=== PATIENT | female | born 1980 | race Two or more races ===

== ENCOUNTER 2021-02-27 21:03 | Inpatient (IN) | payer SELFPAY ==
[~2021-02-27] VITALS: Ht 167.6 cm; Wt 60.9 kg
[2021-02-27] MEDS ORDERED: MORPHINE SULFATE 4 MG/ML INJ. IVP ONE (23:45)
[2021-02-27] MEDS ORDERED: IV NORMAL SALINE 1000ML BAG 1,000 ML IV ONE (23:45)
[2021-02-27] MEDS ORDERED: ONDANSETRON PF 4 MG/2 ML VIAL. IVP ONE (23:45)
--- NOTE | 2021-02-27 23:53 | PHYS DOC ---
General Adult EDM: Chief Complaint: ABDOMINAL PAIN HPI: HPI: Patient is a 40 year old female who presents with lower abdominal pain. Patient states that on Saturday she started having pain which progressed to diarrhea on Saturday along with vomiting. Patient reports that she vomited once yesterday and once today. Patient describes pain as a cramping, intermittent pain. Denies other health history. Denies daily meds. Patient is fully vaccinated for COVID-19. Review of Systems: Review of Systems: Constitutional: Denies fever or chills. [] Eyes: Denies change in visual acuity. [] HENT: Denies nasal congestion or sore throat. [] Respiratory: Denies cough or shortness of breath. [] Cardiovascular: Denies chest pain or edema. [] GI: Denies abdominal pain, nausea, vomiting, bloody stools or diarrhea. [] : Denies dysuria. [] Musculoskeletal: Denies back pain or joint pain. [] Integument: Denies rash. [] Neurologic: Denies headache, focal weakness or sensory changes. [] Endocrine: Denies polyuria or polydipsia. [] Lymphatic: Denies swollen glands. [] Psychiatric: Denies depression or anxiety. [] Heart Score: C/O Chest Pain: No Risk Factors: Risk Factors: DM, Current or recent (<one month) smoker, HTN, HLP, family history of CAD, obesity. Risk Scores: Score 0 - 3: 2.5% MACE over next 6 weeks - Discharge Home Score 4 - 6: 20.3% MACE over next 6 weeks - Admit for Clinical Observation Score 7 - 10: 72.7% MACE over next 6 weeks - Early Invasive Strategies Allergies: Allergies: Allergies Coded Allergies Type Severity Reaction Last Updated Verified No Known Drug Allergies 04/27/13 No Physical Exam: PE: Constitutional: Well developed, well nourished, no acute distress, non-toxic appearance. [] HENT: Normocephalic, atraumatic, bilateral external ears normal, oropharynx moist, no oral exudates, nose normal. [] Eyes: PERRLA, EOMI, conjunctiva normal, no discharge. [] Neck: Normal range of motion, no tenderness, supple, no stridor. [] Cardiovascular:Heart rate regular rhythm, no murmur [] Lungs & Thorax: Bilateral breath sounds clear to auscultation [] Abdomen: Bowel sounds normal, soft, lower abdominal tenderness, no masses Skin: Warm, dry, no erythema, no rash. [] Back: No tenderness, no CVA tenderness. [] Extremities: No tenderness, no cyanosis, no clubbing, ROM intact, no edema. [] Neurologic: Alert and oriented X 3, normal motor function, normal sensory function, no focal deficits noted. [] Psychologic: Affect normal, judgement normal, mood normal. [] EKG: EKG: [] Radiology/Procedures: Radiology/Procedures: [] Course & Med Decision Making: Course & Med Decision Making Pertinent Labs and Imaging studies reviewed. (See chart for details) [] 40-year-old female presents with lower abdominal cramping since Saturday. Patient's also been having diarrhea and vomiting. ER work-up consisted of urinalysis, CT abdomen pelvis, labs. Patient's pain was treated in the ER. Patient care transferred to Dr. Liu at 0058 [facility] Disclaimer: Cammy Disclaimer: This electronic medical record was generated, in whole or in part, using a voice recognition dictation system. Departure Departure Referrals: NO PCP (PCP) HEATHER LYNN APRN Feb 27, 2021 23:52
[2021-02-28 00:16] LABS: BASO % 0 % (0-3); EOS % 0 % (0-3); HEMATOCRIT 33.4 % (36.0-47.0); LYMPH # 0.9 x10^3/uL (1.0-4.8); LYMPH % 6 % (24-48); MEAN CORPUSCULAR HEMOGLOBIN 27 pg (25-35); MEAN CORPUSCULAR HGB CONC 33 g/dL (31-37); MEAN CORPUSCULAR VOLUME 81 fL (79-100); MONO # 0.5 x10^3/uL (0.0-1.1); MONO % 3 % (0-9); NEUT # 14.7 x10^3/uL (1.8-7.7); NEUT % 91 % (31-73); PLATELET COUNT 385 x10^3/uL (140-400); RED BLOOD COUNT 4.12 x10^6/uL (3.50-5.40); RED CELL DISTRIBUTION WIDTH 15.5 % (11.5-14.5); WHITE BLOOD COUNT 16.1 x10^3/uL (4.0-11.0)
[2021-02-28 00:23] LABS: CALCIUM 8.1 mg/dL (8.5-10.1); CREATININE 0.7 mg/dL (0.6-1.0); GFR 93.6; POTASSIUM 3.7 mmol/L (3.5-5.1)
[2021-02-28 00:29] LABS: ALBUMIN 2.3 g/dL (3.4-5.0); ALBUMIN/GLOBULIN RATIO 0.4 (1.0-1.7); MAGNESIUM 2.2 mg/dL (1.8-2.4); TOTAL BILIRUBIN 0.3 mg/dL (0.2-1.0); TOTAL PROTEIN 7.5 g/dL (6.4-8.2)
[2021-02-28 00:42] LABS: PREG TEST PT QUAL NEGATIVE (NEG)
--- NOTE | 2021-02-28 01:24 | RAD ---
Abdominal and Pelvis CT, Without Contrast: History: Reason: LOWER ABDOMINAL PAIN / Spl. Instructions: / History: Comparison: None. Procedure: Axial images are obtained of the abdomen and pelvis, without IV or oral contrast. Oral Contrast: No Findings: Evaluation of solid organs is limited without contrast. This patchy opacities in the lung bases. There is moderate wall thickening of the colon which is collapsed and not well evaluated. There is mu ltiple dilated loops of small bowel seen which have mild to moderate wall thickening. There is a mass in the pelvis which measures 14.3 x 9.0 x 12.6 cm and directly involves the uterus and likely involv es the ovaries. There is loss of the fat plane between this mass and There is a trace of fluid around the liver. Liver: Normal. Spleen: Normal. Pancreas: Normal. Adrenal Glands: Normal. Kidneys: Normal. There is no free air. There is no lymphadenopathy. The urinary bladder appears normal. There is no pericolonic inflammation identified. Impression: 1. Basilar pulmonary infiltrates could be discoid atelectasis or atypical pneumonia. 2. Large mass in the pelvis which appears to directly involve the uterus and ovaries. This could be o varian cancer or a leiomyosarcoma or endometrial carcinoma. must be excluded. 3. High-grade small bowel obstruction. Exact transition zone is not seen. 4. Moderate wall thickening of the colon could be colitis however carcinomatosis is possible. End impression PQRS Compliance Statement: One or more of the following individualized dose reduction techniques were utilized for this examinat ion: 1. Automated exposure control 2. Adjustment of the mA and/or kV according to patient size 3. Use of iterative reconstruction technique Electronically signed by: Jesus Merritt III, MD (02/28/2021 1:22 AM) [facility]
--- NOTE | 2021-02-28 01:31 | RAD ---
XR CHEST 1V Clinical History: Reason: ABDOMINAL PAIN / Spl. Instructions: / History: Technique: AP view of the chest was obtained at 02/27/2021 12:48 AM. Comparison: None. Findings: The cardiomediastinal silhouette is normal. The pulmonary vasculature is normal. There is linear opac ities in the lower lungs. Impression: Basal infiltrates could be discoid atelectasis or pneumonia. Electronically signed by: Jesus Merritt III, MD (02/28/2021 1:29 AM) [facility]
[2021-02-28] MEDS ORDERED: BENZOCAINE ONE 20% MUCOSAL SPRAY. (02:19)
[2021-02-28] MEDS ORDERED: BENZOCAINE ONE 20% MUCOSAL SPRAY. MM ×2 (02:30→02:45)
--- NOTE | 2021-02-28 03:12 | RAD ---
One view abdomen HISTORY: NG tube placement Supine AP view abdomen 2:45 PM There is an enteric tube with its tip in the distal stomach. There is patchy and linear opacities mary g bases which are likely discoid atelectasis. There is no obvious free air. There is air within a few mildly distended loops of small bowel. IMPRESSION: 1. Enteric tube well-positioned. 2. Abnormal bowel gas pattern consistent with small bowel obstruction. Electronically signed by: Jesus Merritt III, MD (02/28/2021 3:10 AM) [facility]
[2021-02-28] MEDS ORDERED: ONDANSETRON PF 4 MG/2 ML VIAL. IVP PRN ×2 (03:30→09:30)
[2021-02-28] MEDS ORDERED: fentaNYL PF VIAL 100 MCG/2 ML VIAL IVP PRN (03:30)
[2021-02-28 04:15] VITALS: BP 123/75
[2021-02-28] MEDS: IV NORMAL SALINE 1000ML BAG 1,000 ML IV SCH ×2 (04:42→16:53)
[2021-02-28] MEDS ORDERED: ACET325T9 PO (05:41)
[2021-02-28 07:00] VITALS: BP 123/70
--- NOTE | 2021-02-28 09:27 | PDOC1 ---
History and Physical Date of Service: DOS: DATE: 02/28/21 TIME: 09:27 Chief Complaint: Problems: (1) SBO (small bowel obstruction) (2) Pelvic mass History of Present Illness: HPI: Patient is a 40 year old female who presents with lower abdominal pain. Patient states that on Saturday she started having pain which progressed to diarrhea on Saturday along with vomiting. Patient reports that she vomited once yesterday and once today. Of note patient received her Covid shot on Saturday and initially thought symptoms were related to that. patient describes pain as a cramping, intermittent pain. Denies other health history. Denies daily meds. Patient is fully vaccinated for COVID-19. Past Medical/Surgical History: PMH/PSH: Denies any past medical history Allergies: Allergies: Coded Allergies: No Known Drug Allergies (Unverified , 04/27/13) Family History: Family History: Reviewed with patient no known Social History: Social History: Denies alcohol tobacco drug use Current Medications: Current Medications Current Medications Sodium Chloride 1,000 ml @ 30 mls/hr 1X ONCE IV Last administered on 02/28/21at 00:05; Start 02/27/21 at 23:45; Stop 03/01/21 at 09:04 Morphine Sulfate (Morphine Sulfate) 4 mg 1X ONCE IVP Last administered on 02/28/21at 00:05; Start 02/27/21 at 23:45; Stop 02/27/21 at 23:50; Status DC Ondansetron HCl (Zofran) 4 mg 1X ONCE IVP Last administered on 02/28/21at 00:05; Start 02/27/21 at 23:45; Stop 02/27/21 at 23:50; Status DC Benzocaine (Hurricaine One) 1 spray STK-MED ONCE .ROUTE ; Start 02/28/21 at 02:19; Stop 02/28/21 at 02:20; Status DC Benzocaine (Hurricaine One) 1 spray 1X ONCE MM Last administered on 02/28/21at 02:30; Start 02/28/21 at 02:30; Stop 02/28/21 at 02:31; Status DC Benzocaine (Hurricaine One) 1 spray 1X ONCE MM ; Start 02/28/21 at 02:45; Stop 02/28/21 at 02:46; Status DC Ondansetron HCl (Zofran) 4 mg PRN Q8HRS PRN IVP NAUSEA/VOMITING; Start 02/28/21 at 03:30; Stop 03/01/21 at 03:29 Fentanyl Citrate (Fentanyl 2ml Vial) 50 mcg PRN Q1HR PRN IVP PAIN Last administered on 02/28/21at 04:42; Start 02/28/21 at 03:30; Stop 03/01/21 at 03:29 Sodium Chloride 1,000 ml @ 75 mls/hr [id number] IV Last administered on 02/28/21at 04:42; Start 02/28/21 at 03:30; Stop 03/01/21 at 03:29 Active Scripts Active Reported Tylenol (Acetaminophen) 325 Mg Tablet 650 Mg PO PRN Q4HRS PRN ROS: Review of Systems Review of System Unless noted in HPI 14 point review systems was negative Physical Exam: Vital Signs: Vital Signs Date Time Temp Pulse Resp B/P (MAP) Pulse Ox O2 Delivery O2 Flow Rate FiO2 02/28/21 07:00 98.5 75 19 123/70 (87) 94 Room Air 98.5 Physcial Exam: GEN: Patient in mild distress HEENT: Normal cephalic, atraumatic, external auditory canals are patent EYES: Extraocular muscles are intact, pupil are equally round and reactive to light and accommodation MUSCULOSKELETAL: Well developed , well nourished, good range of motion ENDOCRINE: No thyromegaly was palpated LYMPHATICS: No cervical chain or axillary nodes were noted HEMATOPOIETIC: No bruising NECK: Supple, no JVD, no thyromegaly was noted LUNGS: Clear to auscultation in all lung riley without rhonchi or wheezing HEART: RRR, S1, S2 present. Peripheral pulses intact, no obvious murmurs noted ABDOMEN: Diffusely tender. Soft. No apparent hepatosplenomegaly EXTREMITIES: Without clubbing, cyanosis, or edema. Pedal pulses intact. Negative Homans sign NEUROLOGIC: Normal speech and tone. A&O x 3, moves all extremities, no obvious focal deficits PSYCHIATRIC: Normal affect, normal mood. Stable SKIN: No ulcerations or rashes, good skin turgor, no jaundice VASCULAR: Good capillary refill, neurovascular bundle appears to be intact Labs: Labs: Laboratory Tests Test 02/28/21 00:01 02/28/21 00:10 02/28/21 03:46 Serum Test, Qualitative Negative (NEG) White Blood Count 16.1 x10^3/uL (4.0-11.0) Red Blood Count 4.12 x10^6/uL (3.50-5.40) Hemoglobin 11.0 g/dL (12.0-15.5) Hematocrit 33.4 % (36.0-47.0) Mean Corpuscular Volume 81 fL (79-100) Mean Corpuscular Hemoglobin 27 pg (25-35) Mean Corpuscular Hemoglobin Concent 33 g/dL (31-37) Red Cell Distribution Width 15.5 % (11.5-14.5) Platelet Count 385 x10^3/uL (140-400) Neutrophils (%) (Auto) 91 % (31-73) Lymphocytes (%) (Auto) 6 % (24-48) Monocytes (%) (Auto) 3 % (0-9) Eosinophils (%) (Auto) 0 % (0-3) Basophils (%) (Auto) 0 % (0-3) Neutrophils # (Auto) 14.7 x10^3/uL (1.8-7.7) Lymphocytes # (Auto) 0.9 x10^3/uL (1.0-4.8) Monocytes # (Auto) 0.5 x10^3/uL (0.0-1.1) Eosinophils # (Auto) 0.0 x10^3/uL (0.0-0.7) Basophils # (Auto) 0.0 x10^3/uL (0.0-0.2) Sodium Level 137 mmol/L (136-145) Potassium Level 3.7 mmol/L (3.5-5.1) Chloride Level 100 mmol/L (98-107) Carbon Dioxide Level 28 mmol/L (21-32) Anion Gap 9 (6-14) Blood Urea Nitrogen 9 mg/dL (7-20) Creatinine 0.7 mg/dL (0.6-1.0) Estimated GFR (Cockcroft-Gault) 93.6 BUN/Creatinine Ratio 13 (6-20) Glucose Level 118 mg/dL (70-99) Calcium Level 8.1 mg/dL (8.5-10.1) Magnesium Level 2.2 mg/dL (1.8-2.4) Total Bilirubin 0.3 mg/dL (0.2-1.0) Aspartate Amino Transf (AST/SGOT) 15 U/L (15-37) Alanine Aminotransferase (ALT/SGPT) 22 U/L (14-59) Alkaline Phosphatase 134 U/L (46-116) Total Protein 7.5 g/dL (6.4-8.2) Albumin 2.3 g/dL (3.4-5.0) Albumin/Globulin Ratio 0.4 (1.0-1.7) Lipase 50 U/L (73-393) SARS-CoV-2 Antigen (Rapid) Negative (NEGATIVE) Laboratory Tests Test 02/28/21 00:01 02/28/21 00:10 02/28/21 03:46 Serum Test, Qualitative Negative (NEG) White Blood Count 16.1 x10^3/uL (4.0-11.0) Red Blood Count 4.12 x10^6/uL (3.50-5.40) Hemoglobin 11.0 g/dL (12.0-15.5) Hematocrit 33.4 % (36.0-47.0) Mean Corpuscular Volume 81 fL (79-100) Mean Corpuscular Hemoglobin 27 pg (25-35) Mean Corpuscular Hemoglobin Concent 33 g/dL (31-37) Red Cell Distribution Width 15.5 % (11.5-14.5) Platelet Count 385 x10^3/uL (140-400) Neutrophils (%) (Auto) 91 % (31-73) Lymphocytes (%) (Auto) 6 % (24-48) Monocytes (%) (Auto) 3 % (0-9) Eosinophils (%) (Auto) 0 % (0-3) Basophils (%) (Auto) 0 % (0-3) Neutrophils # (Auto) 14.7 x10^3/uL (1.8-7.7) Lymphocytes # (Auto) 0.9 x10^3/uL (1.0-4.8) Monocytes # (Auto) 0.5 x10^3/uL (0.0-1.1) Eosinophils # (Auto) 0.0 x10^3/uL (0.0-0.7) Basophils # (Auto) 0.0 x10^3/uL (0.0-0.2) Sodium Level 137 mmol/L (136-145) Potassium Level 3.7 mmol/L (3.5-5.1) Chloride Level 100 mmol/L (98-107) Carbon Dioxide Level 28 mmol/L (21-32) Anion Gap 9 (6-14) Blood Urea Nitrogen 9 mg/dL (7-20) Creatinine 0.7 mg/dL (0.6-1.0) Estimated GFR (Cockcroft-Gault) 93.6 BUN/Creatinine Ratio 13 (6-20) Glucose Level 118 mg/dL (70-99) Calcium Level 8.1 mg/dL (8.5-10.1) Magnesium Level 2.2 mg/dL (1.8-2.4) Total Bilirubin 0.3 mg/dL (0.2-1.0) Aspartate Amino Transf (AST/SGOT) 15 U/L (15-37) Alanine Aminotransferase (ALT/SGPT) 22 U/L (14-59) Alkaline Phosphatase 134 U/L (46-116) Total Protein 7.5 g/dL (6.4-8.2) Albumin 2.3 g/dL (3.4-5.0) Albumin/Globulin Ratio 0.4 (1.0-1.7) Lipase 50 U/L (73-393) SARS-CoV-2 Antigen (Rapid) Negative (NEGATIVE) Assessment/Plan Assessment/Plan Nausea vomiting diarrhea secondary to pelvic mass also causing small bowel obstruction -3-day history worsening abdominal pain. Initially thought of secondary to Covid booster shot -Came to emergency room yesterday today found to have a large mass in her pelvis on CT scan -Gynecology and surgery consulted -Gynecology recommending pelvic ultrasound along with further lab work-up. If remains consistent with malignancy recommending transfer to another facility with [employer] [facility]/Onc coverage. Surgical team agrees. -Likely will be difficult to transfer as patient does not have insurance -N.p.o. for now -DVT prophylaxis -After labs and pelvic ultrasound completed will start working on transfer. Justifications for Admission Other Justification LYNDA DÍAZ MD Feb 28, 2021 09:27
[2021-02-28] MEDS ORDERED: ACETAMINOPHEN 325 MG TABLET. PO PRN (09:30)
[2021-02-28] MEDS ORDERED: MORPHINE SULFATE 2 MG/ML INJ. IV PRN ×2 (09:30)
[2021-02-28] MEDS ORDERED: ZOLPIDEM 5 MG TABLET. PO PRN (09:30)
[2021-02-28] MEDS ORDERED: CALCIUM CARBONATE 500 MG TAB.CHEW PO PRN (09:30)
[2021-02-28] MEDS ORDERED: ELECTROLYTE (NON-ICU) PROTOCOL. MC PRN (09:30)
[2021-02-28] MEDS ORDERED: oxyCODONE IR 5 MG TABLET PO PRN (09:30)
[2021-02-28] MEDS ORDERED: PROCHLORPERAZINE 10 MG/2 ML VIAL. IVP PRN (09:30)
--- NOTE | 2021-02-28 10:23 | PDOC2 ---
CONSULT Date of Consult Date of Consult DATE: 02/28/21 TIME: 10:22 Reason for Consult Reason for Consult: Pelvic mass, abd pain 40y who presented to the ER with abd pain. The pt states that she received her covid vaccine shot this Saturday. At first she thought her symptoms may have been related to that. On Sat (02/25) she began to have abd pain, bloating and diarrhea. The following day she began to have vomiting. She has never felt like this before. When she presented to the ER she underwent imaging. A CT revealed the followin. Basilar pulmonary infiltrates could be discoid atelectasis or atypical pneumonia. 2. Large mass in the pelvis which appears to directly involve the uterus and ovaries. This could be ovarian cancer or a leiomyosarcoma or endometrial carcinoma. must be excluded. 3. High-grade small bowel obstruction. Exact transition zone is not seen. 4. Moderate wall thickening of the colon could be colitis however carcinomatosis is possible. 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 Menarche at 14yo, regular cycles Not currently on contracpetion SH: no tob, no EtOH FH: noncontributory Current Medications Current Medications Current Medications Sodium Chloride 1,000 ml @ 30 mls/hr 1X ONCE IV Last administered on 02/28/21at 00:05; Start 02/27/21 at 23:45; Stop 03/01/21 at 09:04 Morphine Sulfate (Morphine Sulfate) 4 mg 1X ONCE IVP Last administered on 02/28/21at 00:05; Start 02/27/21 at 23:45; Stop 02/27/21 at 23:50; Status DC Ondansetron HCl (Zofran) 4 mg 1X ONCE IVP Last administered on 02/28/21at 00:05; Start 02/27/21 at 23:45; Stop 02/27/21 at 23:50; Status DC Benzocaine (Hurricaine One) 1 spray STK-MED ONCE .ROUTE ; Start 02/28/21 at 02:19; Stop 02/28/21 at 02:20; Status DC Benzocaine (Hurricaine One) 1 spray 1X ONCE MM Last administered on 02/28/21at 02:30; Start 02/28/21 at 02:30; Stop 02/28/21 at 02:31; Status DC Benzocaine (Hurricaine One) 1 spray 1X ONCE MM ; Start 02/28/21 at 02:45; Stop 02/28/21 at 02:46; Status DC Ondansetron HCl (Zofran) 4 mg PRN Q8HRS PRN IVP NAUSEA/VOMITING; Start 02/28/21 at 03:30; Stop 03/01/21 at 03:29 Fentanyl Citrate (Fentanyl 2ml Vial) 50 mcg PRN Q1HR PRN IVP PAIN Last administered on 02/28/21at 04:42; Start 02/28/21 at 03:30; Stop 03/01/21 at 03:29 Sodium Chloride 1,000 ml @ 75 mls/hr [id number] IV Last administered on 02/28at 04:42; Start 02/28/21 at 03:30; Stop 03/01/21 at 03:29 Ondansetron HCl (Zofran) 4 mg PRN Q6HRS PRN IVP NAUSEA/VOMITING; Start 02/28/21 at 09:30 Prochlorperazine Edisylate (Compazine) 10 mg PRN Q6HRS PRN IVP NAUSEA/VOMITING- 2ND CHOICE; Start 02/28/21 at 09:30 Calcium Carbonate/ Glycine (Tums) 500 mg PRN Q3HRS PRN PO UPSET STOMACH; Start 02/28/21 at 09:30 Zolpidem Tartrate (Ambien) 5 mg PRN QHS PRN PO INSOMNIA, MAY REPEAT IN 1HR; Start 02/28/21 at 09:30 Info (Non-Icu Electrolyte Protocol) 1 ea PRN DAILY PRN MC SEE COMMENTS; Start 02/28/21 at 09:30 Oxycodone HCl (Roxicodone) 5 mg PRN Q3HRS PRN PO BREAKTHROUGH PAIN; Start 02/28/21 at 09:30 Morphine Sulfate (Morphine Sulfate) 1 mg PRN Q1HR PRN IV MODERATE PAIN; Start 02/28/21 at 09:30 Morphine Sulfate (Morphine Sulfate) 2 mg PRN Q1HR PRN IV SEVERE PAIN; Start 02/28/21 at 09:30 Acetaminophen (Tylenol) 650 mg PRN Q6HRS PRN PO Headaches, Temp > 101.5F; Start 02/28/21 at 09:30 Senna/Docusate Sodium (Senna Plus) 1 tab BID PO ; Start 02/28/21 at 21:00 Heparin Sodium (Porcine) (Heparin Sodium) 5,000 unit Q8HRS SQ ; Start 02/28/21 at 14:00 Active Scripts Active Reported Tylenol (Acetaminophen) 325 Mg Tablet 650 Mg PO PRN Q4HRS PRN Allergies Allergies: Coded Allergies: No Known Drug Allergies (Unverified , 04/27/13) Physical Exam General: Alert, Oriented X3, Cooperative, No acute distress HEENT: PERRLA, Mucous membr. moist/pink Lungs: Clear to auscultation, Normal air movement Heart: Regular rate, Normal S1, Normal S2, No murmurs Abdomen: Normal bowel sounds, Soft, No hepatosplenomegaly Extremities: No clubbing, No cyanosis, No edema, Normal pulses, No tenderness/swelling Skin: No rashes, No breakdown Neuro: Normal gait, Normal speech, Normal tone, Sensation intact, Reflexes 2+ Psych/Mental Status: Mental status NL, Mood NL Vitals VITALS Vital Signs Date Time Temp Pulse Resp B/P (MAP) Pulse Ox O2 Delivery O2 Flow Rate FiO2 02/28/21 07:00 98.5 75 19 123/70 (87) 94 Room Air 98.5 Labs Labs Laboratory Tests Test 02/28/21 00:01 02/28/21 00:10 02/28/21 03:46 Serum Test, Qualitative Negative (NEG) White Blood Count 16.1 x10^3/uL (4.0-11.0) Red Blood Count 4.12 x10^6/uL (3.50-5.40) Hemoglobin 11.0 g/dL (12.0-15.5) Hematocrit 33.4 % (36.0-47.0) Mean Corpuscular Volume 81 fL (79-100) Mean Corpuscular Hemoglobin 27 pg (25-35) Mean Corpuscular Hemoglobin Concent 33 g/dL (31-37) Red Cell Distribution Width 15.5 % (11.5-14.5) Platelet Count 385 x10^3/uL (140-400) Neutrophils (%) (Auto) 91 % (31-73) Lymphocytes (%) (Auto) 6 % (24-48) Monocytes (%) (Auto) 3 % (0-9) Eosinophils (%) (Auto) 0 % (0-3) Basophils (%) (Auto) 0 % (0-3) Neutrophils # (Auto) 14.7 x10^3/uL (1.8-7.7) Lymphocytes # (Auto) 0.9 x10^3/uL (1.0-4.8) Monocytes # (Auto) 0.5 x10^3/uL (0.0-1.1) Eosinophils # (Auto) 0.0 x10^3/uL (0.0-0.7) Basophils # (Auto) 0.0 x10^3/uL (0.0-0.2) Sodium Level 137 mmol/L (136-145) Potassium Level 3.7 mmol/L (3.5-5.1) Chloride Level 100 mmol/L (98-107) Carbon Dioxide Level 28 mmol/L (21-32) Anion Gap 9 (6-14) Blood Urea Nitrogen 9 mg/dL (7-20) Creatinine 0.7 mg/dL (0.6-1.0) Estimated GFR (Cockcroft-Gault) 93.6 BUN/Creatinine Ratio 13 (6-20) Glucose Level 118 mg/dL (70-99) Calcium Level 8.1 mg/dL (8.5-10.1) Magnesium Level 2.2 mg/dL (1.8-2.4) Total Bilirubin 0.3 mg/dL (0.2-1.0) Aspartate Amino Transf (AST/SGOT) 15 U/L (15-37) Alanine Aminotransferase (ALT/SGPT) 22 U/L (14-59) Alkaline Phosphatase 134 U/L (46-116) Total Protein 7.5 g/dL (6.4-8.2) Albumin 2.3 g/dL (3.4-5.0) Albumin/Globulin Ratio 0.4 (1.0-1.7) Lipase 50 U/L (73-393) SARS-CoV-2 Antigen (Rapid) Negative (NEGATIVE) Laboratory Tests Test 02/28/21 00:01 02/28/21 00:10 02/28/21 03:46 Serum Test, Qualitative Negative (NEG) White Blood Count 16.1 x10^3/uL (4.0-11.0) Red Blood Count 4.12 x10^6/uL (3.50-5.40) Hemoglobin 11.0 g/dL (12.0-15.5) Hematocrit 33.4 % (36.0-47.0) Mean Corpuscular Volume 81 fL (79-100) Mean Corpuscular Hemoglobin 27 pg (25-35) Mean Corpuscular Hemoglobin Concent 33 g/dL (31-37) Red Cell Distribution Width 15.5 % (11.5-14.5) Platelet Count 385 x10^3/uL (140-400) Neutrophils (%) (Auto) 91 % (31-73) Lymphocytes (%) (Auto) 6 % (24-48) Monocytes (%) (Auto) 3 % (0-9) Eosinophils (%) (Auto) 0 % (0-3) Basophils (%) (Auto) 0 % (0-3) Neutrophils # (Auto) 14.7 x10^3/uL (1.8-7.7) Lymphocytes # (Auto) 0.9 x10^3/uL (1.0-4.8) Monocytes # (Auto) 0.5 x10^3/uL (0.0-1.1) Eosinophils # (Auto) 0.0 x10^3/uL (0.0-0.7) Basophils # (Auto) 0.0 x10^3/uL (0.0-0.2) Sodium Level 137 mmol/L (136-145) Potassium Level 3.7 mmol/L (3.5-5.1) Chloride Level 100 mmol/L (98-107) Carbon Dioxide Level 28 mmol/L (21-32) Anion Gap 9 (6-14) Blood Urea Nitrogen 9 mg/dL (7-20) Creatinine 0.7 mg/dL (0.6-1.0) Estimated GFR (Cockcroft-Gault) 93.6 BUN/Creatinine Ratio 13 (6-20) Glucose Level 118 mg/dL (70-99) Calcium Level 8.1 mg/dL (8.5-10.1) Magnesium Level 2.2 mg/dL (1.8-2.4) Total Bilirubin 0.3 mg/dL (0.2-1.0) Aspartate Amino Transf (AST/SGOT) 15 U/L (15-37) Alanine Aminotransferase (ALT/SGPT) 22 U/L (14-59) Alkaline Phosphatase 134 U/L (46-116) Total Protein 7.5 g/dL (6.4-8.2) Albumin 2.3 g/dL (3.4-5.0) Albumin/Globulin Ratio 0.4 (1.0-1.7) Lipase 50 U/L (73-393) SARS-CoV-2 Antigen (Rapid) Negative (NEGATIVE) Assessment/Plan Assessment/Plan Assessment: 40y who with pelvic mass and SBO Recommendation: 1.) Pelvic mass - Pt with a large pelvic mass not well characterized. Based on other findings on CT concerns of malignancy. Would obtain u/s to better characterize and localize mass. Would also obtain tumor markers at this time, so that if the mass is ovarian in nature, this could also help determine the risk of malignancy. Discussed with pt and that based findings thus far that this could very likely be malignancy. Would recommend transfer to a facility with Furnace Con[employer]/Onc if additional w/u also points to malignancy. 2.) SBO per Gen Surg 3.) Contraception none 4.) Will cont to follow ABBY OWENS MD Feb 28, 2021 10:23
--- NOTE | 2021-02-28 10:33 | NUR ---
SW following. Discussed with RN, pt from home, room air, NPO, rapid COVID-19 negative. NG tube. Surgery and OB following. Med Assist following for self pay status. SW will continue to follow.
[2021-02-28 11:00] VITALS: BP 116/76
--- NOTE | 2021-02-28 11:15 | PDOC2 ---
[facility] [employer] 02/28/21 1115: CONSULT Date of Consult Date of Consult DATE: 02/28/21 TIME: 11:11 Reason for Consult Reason for Consult: SBO Referring Physician Referring Physician: ER Identification/Chief Complaint Chief Complaint abd pain Source Source: Chart review, Patient History of Present Illness Reason for Visit: Admitted with worsening abdominal pain and bloating that started Saturday. Thought was related to Covid vaccine she had Saturday, however she continued to feel bad. Associated diarrhea and vomiting. NO similar symptoms in past Past Medical History Past Medical History denies any medical hx Past Surgical History Past Surgical History: No pertinent history Family History Family History: Other (noncontributory to current illness ) Social History No ALCOHOL: none Drugs: None Lives: with Family Current Medications Current Medications Current Medications Sodium Chloride 1,000 ml @ 30 mls/hr 1X ONCE IV Last administered on 02/28/21at 00:05; Start 02/27/21 at 23:45; Stop 03/01/21 at 09:04 Morphine Sulfate (Morphine Sulfate) 4 mg 1X ONCE IVP Last administered on 02/28/21at 00:05; Start 02/27/21 at 23:45; Stop 02/27/21 at 23:50; Status DC Ondansetron HCl (Zofran) 4 mg 1X ONCE IVP Last administered on 02/28/21at 00:05; Start 02/27/21 at 23:45; Stop 02/27/21 at 23:50; Status DC Benzocaine (Hurricaine One) 1 spray STK-MED ONCE .ROUTE ; Start 02/28/21 at 02:19; Stop 02/28/21 at 02:20; Status DC Benzocaine (Hurricaine One) 1 spray 1X ONCE MM Last administered on 02/28/21at 02:30; Start 02/28/21 at 02:30; Stop 02/28/21 at 02:31; Status DC Benzocaine (Hurricaine One) 1 spray 1X ONCE MM ; Start 02/28/21 at 02:45; Stop 02/28/21 at 02:46; Status DC Ondansetron HCl (Zofran) 4 mg PRN Q8HRS PRN IVP NAUSEA/VOMITING; Start 02/28/21 at 03:30; Stop 03/01/21 at 03:29 Fentanyl Citrate (Fentanyl 2ml Vial) 50 mcg PRN Q1HR PRN IVP PAIN Last administered on 02/28/21at 04:42; Start 02/28/21 at 03:30; Stop 03/01/21 at 03:29 Sodium Chloride 1,000 ml @ 75 mls/hr [id number] IV Last administered on 02/28/21at 04:42; Start 02/28/21 at 03:30; Stop 03/01/21 at 03:29 Ondansetron HCl (Zofran) 4 mg PRN Q6HRS PRN IVP NAUSEA/VOMITING; Start 02/28/21 at 09:30 Prochlorperazine Edisylate (Compazine) 10 mg PRN Q6HRS PRN IVP NAUSEA/VOMITING- 2ND CHOICE; Start 02/28/21 at 09:30 Calcium Carbonate/ Glycine (Tums) 500 mg PRN Q3HRS PRN PO UPSET STOMACH; Start 02/28/21 at 09:30 Zolpidem Tartrate (Ambien) 5 mg PRN QHS PRN PO INSOMNIA, MAY REPEAT IN 1HR; Start 02/28/21 at 09:30 Info (Non-Icu Electrolyte Protocol) 1 ea PRN DAILY PRN MC SEE COMMENTS; Start 02/28/21 at 09:30 Oxycodone HCl (Roxicodone) 5 mg PRN Q3HRS PRN PO BREAKTHROUGH PAIN; Start 02/28/21 at 09:30 Morphine Sulfate (Morphine Sulfate) 1 mg PRN Q1HR PRN IV MODERATE PAIN; Start 02/28/21 at 09:30 Morphine Sulfate (Morphine Sulfate) 2 mg PRN Q1HR PRN IV SEVERE PAIN; Start 02/28/21 at 09:30 Acetaminophen (Tylenol) 650 mg PRN Q6HRS PRN PO Headaches, Temp > 101.5F; Start 02/28/21 at 09:30 Senna/Docusate Sodium (Senna Plus) 1 tab BID PO ; Start 02/28/21 at 21:00 Heparin Sodium (Porcine) (Heparin Sodium) 5,000 unit Q8HRS SQ ; Start 02/28/21 at 14:00 Active Scripts Active Reported Tylenol (Acetaminophen) 325 Mg Tablet 650 Mg PO PRN Q4HRS PRN Allergies Allergies: Coded Allergies: No Known Drug Allergies (Unverified , 04/27/13) ROS General: YES: Fatigue, Appetite (loss); No: Chills PSYCHOLOGICAL ROS: No: Anxiety, Depression Eyes: No Blurry vision, No Double vision HEENT: YES: Sore Throat; No: Heacaches Hematological and Lymphatic: No: Bleeding Problems, Blood Clots Respiratory: No: Cough, Shortness of breath Cardiovascular: No Chest Pain, No Palpitations Gastrointestinal: Yes Other (see hpi) Genitourinary: No Dysuria, No Retention Musculoskeletal: No Joint Pain, No Muscle Pain Neurological: No Impaired Coord/balance, No Numbness/Tingling Skin: No Pruritus, No Rash Physical Exam General: Cooperative, No acute distress HEENT: Other (ng in place) Lungs: Clear to auscultation, Normal air movement Heart: Regular rate, Normal S1, Normal S2 Abdomen: Soft, Other (mild ttp umbilical area ) Extremities: No clubbing, No cyanosis Skin: No rashes, No breakdown Neuro: Normal speech, Sensation intact Psych/Mental Status: Mental status NL, Mood NL MUSCULOSKELETAL: No deformity, No swelling Vitals VITALS Vital Signs Date Time Temp Pulse Resp B/P (MAP) Pulse Ox O2 Delivery O2 Flow Rate FiO2 02/28/21 07:00 98.5 75 19 123/70 (87) 94 Room Air 98.5 Labs Labs Laboratory Tests Test 02/28/21 00:01 02/28/21 00:10 02/28/21 03:46 Serum Test, Qualitative Negative (NEG) White Blood Count 16.1 x10^3/uL (4.0-11.0) Red Blood Count 4.12 x10^6/uL (3.50-5.40) Hemoglobin 11.0 g/dL (12.0-15.5) Hematocrit 33.4 % (36.0-47.0) Mean Corpuscular Volume 81 fL (79-100) Mean Corpuscular Hemoglobin 27 pg (25-35) Mean Corpuscular Hemoglobin Concent 33 g/dL (31-37) Red Cell Distribution Width 15.5 % (11.5-14.5) Platelet Count 385 x10^3/uL (140-400) Neutrophils (%) (Auto) 91 % (31-73) Lymphocytes (%) (Auto) 6 % (24-48) Monocytes (%) (Auto) 3 % (0-9) Eosinophils (%) (Auto) 0 % (0-3) Basophils (%) (Auto) 0 % (0-3) Neutrophils # (Auto) 14.7 x10^3/uL (1.8-7.7) Lymphocytes # (Auto) 0.9 x10^3/uL (1.0-4.8) Monocytes # (Auto) 0.5 x10^3/uL (0.0-1.1) Eosinophils # (Auto) 0.0 x10^3/uL (0.0-0.7) Basophils # (Auto) 0.0 x10^3/uL (0.0-0.2) Sodium Level 137 mmol/L (136-145) Potassium Level 3.7 mmol/L (3.5-5.1) Chloride Level 100 mmol/L (98-107) Carbon Dioxide Level 28 mmol/L (21-32) Anion Gap 9 (6-14) Blood Urea Nitrogen 9 mg/dL (7-20) Creatinine 0.7 mg/dL (0.6-1.0) Estimated GFR (Cockcroft-Gault) 93.6 BUN/Creatinine Ratio 13 (6-20) Glucose Level 118 mg/dL (70-99) Calcium Level 8.1 mg/dL (8.5-10.1) Magnesium Level 2.2 mg/dL (1.8-2.4) Total Bilirubin 0.3 mg/dL (0.2-1.0) Aspartate Amino Transf (AST/SGOT) 15 U/L (15-37) Alanine Aminotransferase (ALT/SGPT) 22 U/L (14-59) Alkaline Phosphatase 134 U/L (46-116) Total Protein 7.5 g/dL (6.4-8.2) Albumin 2.3 g/dL (3.4-5.0) Albumin/Globulin Ratio 0.4 (1.0-1.7) Lipase 50 U/L (73-393) SARS-CoV-2 Antigen (Rapid) Negative (NEGATIVE) Laboratory Tests Test 02/28/21 00:01 02/28/21 00:10 02/28/21 03:46 Serum Test, Qualitative Negative (NEG) White Blood Count 16.1 x10^3/uL (4.0-11.0) Red Blood Count 4.12 x10^6/uL (3.50-5.40) Hemoglobin 11.0 g/dL (12.0-15.5) Hematocrit 33.4 % (36.0-47.0) Mean Corpuscular Volume 81 fL (79-100) Mean Corpuscular Hemoglobin 27 pg (25-35) Mean Corpuscular Hemoglobin Concent 33 g/dL (31-37) Red Cell Distribution Width 15.5 % (11.5-14.5) Platelet Count 385 x10^3/uL (140-400) Neutrophils (%) (Auto) 91 % (31-73) Lymphocytes (%) (Auto) 6 % (24-48) Monocytes (%) (Auto) 3 % (0-9) Eosinophils (%) (Auto) 0 % (0-3) Basophils (%) (Auto) 0 % (0-3) Neutrophils # (Auto) 14.7 x10^3/uL (1.8-7.7) Lymphocytes # (Auto) 0.9 x10^3/uL (1.0-4.8) Monocytes # (Auto) 0.5 x10^3/uL (0.0-1.1) Eosinophils # (Auto) 0.0 x10^3/uL (0.0-0.7) Basophils # (Auto) 0.0 x10^3/uL (0.0-0.2) Sodium Level 137 mmol/L (136-145) Potassium Level 3.7 mmol/L (3.5-5.1) Chloride Level 100 mmol/L (98-107) Carbon Dioxide Level 28 mmol/L (21-32) Anion Gap 9 (6-14) Blood Urea Nitrogen 9 mg/dL (7-20) Creatinine 0.7 mg/dL (0.6-1.0) Estimated GFR (Cockcroft-Gault) 93.6 BUN/Creatinine Ratio 13 (6-20) Glucose Level 118 mg/dL (70-99) Calcium Level 8.1 mg/dL (8.5-10.1) Magnesium Level 2.2 mg/dL (1.8-2.4) Total Bilirubin 0.3 mg/dL (0.2-1.0) Aspartate Amino Transf (AST/SGOT) 15 U/L (15-37) Alanine Aminotransferase (ALT/SGPT) 22 U/L (14-59) Alkaline Phosphatase 134 U/L (46-116) Total Protein 7.5 g/dL (6.4-8.2) Albumin 2.3 g/dL (3.4-5.0) Albumin/Globulin Ratio 0.4 (1.0-1.7) Lipase 50 U/L (73-393) SARS-CoV-2 Antigen (Rapid) Negative (NEGATIVE) Assessment/Plan 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 Agree with Ms. Bergeron's note Pt with c/o abd pain abd soft, mild distention, mild TTP imaging concerning for malignancy, would favor glaz[facility] stained glass onc eval. Thanks for consult! [facility] [employer] [employer] TEACH[employer] Feb 28, 2021 11:15 SHYANNE MERCADO MD Feb 28, 2021 15:25
[2021-02-28 15:06] VITALS: BP 140/86
--- NOTE | 2021-02-28 15:22 | RAD ---
EXAM: Pelvic sonogram. HISTORY: Mass on CT. TECHNIQUE: Transabdominal sonographic imaging of the pelvis was performed. COMPARISON: CT dated 02/27/2021. FINDINGS: The uterus is retroflexed and measures 9.3 x 5.0 x 4.2 cm. The endometrial stripe measures 6.6 mm in thickness. The ovaries are obscured. There is a complex mixed cystic and solid lesion with component of internal blood flow within the pelvis measuring 17.8 cm in maximum dimension. This exten ds from a the left adnexa to the posterior left uterine fundus. There is no pelvic free fluid. IMPRESSION: 1. Large heterogeneous suspected mixed cystic and solid lesion with internal blood flow within the pe lvis centered within the left adnexa and along the posterior left uterine fundus. The ovaries are not seen separate from this lesion. The sonographic appearance favors malignancy. 2. Retroflexed uterus and normal endometrial stripe. Electronically signed by: Kiara Winslow MD (02/28/2021 3:20 PM) [id number]
[2021-02-28] MEDS: HEPARIN for SUB-Q USE 5,000 UNIT/ML VIAL. SQ SCH ×2 (16:06→22:00)
[2021-02-28 19:00] VITALS: BP 116/69
[2021-02-28 20:15] LABS: AFPT MARKER 0.8 ng/mL (0.0-8.3); CA 125 48.9 U/mL (0.0-38.1)
[2021-02-28] MEDS: SENNOSIDES/DOCUSATE 8.6/50MG TABLET. PO SCH (20:31)
[2021-02-28 23:00] VITALS: BP 107/64
[2021-03-01 03:11] VITALS: BP 108/67
[2021-03-01] MEDS: HEPARIN for SUB-Q USE 5,000 UNIT/ML VIAL. SQ SCH ×3 (05:51→20:10)
[2021-03-01 06:46] LABS: BASO % 0 % (0-3); EOS % 0 % (0-3); HEMATOCRIT 31.3 % (36.0-47.0); LYMPH # 1.1 x10^3/uL (1.0-4.8); LYMPH % 9 % (24-48); MEAN CORPUSCULAR HEMOGLOBIN 26 pg (25-35); MEAN CORPUSCULAR HGB CONC 32 g/dL (31-37); MEAN CORPUSCULAR VOLUME 82 fL (79-100); MONO # 0.6 x10^3/uL (0.0-1.1); MONO % 5 % (0-9); NEUT # 10.2 x10^3/uL (1.8-7.7); NEUT % 85 % (31-73); PLATELET COUNT 417 x10^3/uL (140-400); RED BLOOD COUNT 3.83 x10^6/uL (3.50-5.40); RED CELL DISTRIBUTION WIDTH 15.5 % (11.5-14.5); WHITE BLOOD COUNT 11.9 x10^3/uL (4.0-11.0)
[2021-03-01 07:00] VITALS: BP 111/68
[2021-03-01 07:03] LABS: ALBUMIN 1.9 g/dL (3.4-5.0); ALBUMIN/GLOBULIN RATIO 0.4 (1.0-1.7); CALCIUM 7.7 mg/dL (8.5-10.1); CREATININE 0.6 mg/dL (0.6-1.0); GFR 111.9; POTASSIUM 3.4 mmol/L (3.5-5.1); TOTAL BILIRUBIN 0.3 mg/dL (0.2-1.0); TOTAL PROTEIN 6.8 g/dL (6.4-8.2)
[2021-03-01] MEDS: SENNOSIDES/DOCUSATE 8.6/50MG TABLET. PO SCH ×2 (07:25→19:56)
--- NOTE | 2021-03-01 08:54 | PDOC ---
[employer] PROGRESS NOTE Date of Service DOS: DATE: 03/01/21 TIME: 08:43 Chief Complaint Chief Complaint abdominal pain History of Present Illness History of Present Illness Patient is a 40 year old female who presents with lower abdominal pain. Patient states that on Saturday she started having pain which progressed to diarrhea on Saturday along with vomiting. Patient reports that she vomited once yesterday and once today. Of note patient received her Covid shot on Saturday and initially thought symptoms were related to that. patient describes pain as a cramping, intermittent pain. Denies other health history. Denies daily meds. Patient is fully vaccinated for COVID-19. 03/01 Patient evaluated and examined at bedside. She reports to me that her abdominal pain actually little bit improved. Says she had a bowel movement this morning. Pelvic ultrasound confirming mass consistent with malignancy. We will start working on transfer process. Patient's lack of insurance may make this difficult. Discussed this with patient at bedside she is agreeable to transfer. Will try to contact Dr. Louis to inform him of this. Plan of care discussed with bedside RN. Vitals/I&O Vitals/I&O: Vital Signs Date Time Temp Pulse Resp B/P (MAP) Pulse Ox O2 Delivery O2 Flow Rate FiO2 03/01/21 07:00 99.4 105 16 111/68 (82) 95 Room Air 99.4 I & O 02/28/21 02/28/21 03/01/21 14:59 22:59 06:59 Output Total 700 ml 0 ml Balance -700 ml 0 ml Physical Exam General: Alert, Oriented X3, Cooperative, No acute distress Heart: Regular rate, Normal S1, Normal S2 Lungs: Clear Abdomen: Soft, Other (mild ttp umbilical area ) Extremities: No edema, Normal pulses Skin: No significant lesion Labs Labs: Laboratory Tests Test 02/28/21 11:05 02/28/21 11:14 03/01/21 04:55 Tumor Marker Alpha Fetoprotein 0.8 ng/mL (0.0-8.3) CA 125 Antigen 48.9 U/mL (0.0-38.1) Tumor Marker HCG <1 mIU/mL (.) Lactate Dehydrogenase 410 U/L (81-234) White Blood Count 11.9 x10^3/uL (4.0-11.0) Red Blood Count 3.83 x10^6/uL (3.50-5.40) Hemoglobin 10.0 g/dL (12.0-15.5) Hematocrit 31.3 % (36.0-47.0) Mean Corpuscular Volume 82 fL (79-100) Mean Corpuscular Hemoglobin 26 pg (25-35) Mean Corpuscular Hemoglobin Concent 32 g/dL (31-37) Red Cell Distribution Width 15.5 % (11.5-14.5) Platelet Count 417 x10^3/uL (140-400) Neutrophils (%) (Auto) 85 % (31-73) Lymphocytes (%) (Auto) 9 % (24-48) Monocytes (%) (Auto) 5 % (0-9) Eosinophils (%) (Auto) 0 % (0-3) Basophils (%) (Auto) 0 % (0-3) Neutrophils # (Auto) 10.2 x10^3/uL (1.8-7.7) Lymphocytes # (Auto) 1.1 x10^3/uL (1.0-4.8) Monocytes # (Auto) 0.6 x10^3/uL (0.0-1.1) Eosinophils # (Auto) 0.0 x10^3/uL (0.0-0.7) Basophils # (Auto) 0.0 x10^3/uL (0.0-0.2) Sodium Level 142 mmol/L (136-145) Potassium Level 3.4 mmol/L (3.5-5.1) Chloride Level 106 mmol/L (98-107) Carbon Dioxide Level 24 mmol/L (21-32) Anion Gap 12 (6-14) Blood Urea Nitrogen 13 mg/dL (7-20) Creatinine 0.6 mg/dL (0.6-1.0) Estimated GFR (Cockcroft-Gault) 111.9 BUN/Creatinine Ratio 22 (6-20) Glucose Level 54 mg/dL (70-99) Calcium Level 7.7 mg/dL (8.5-10.1) Total Bilirubin 0.3 mg/dL (0.2-1.0) Aspartate Amino Transf (AST/SGOT) 8 U/L (15-37) Alanine Aminotransferase (ALT/SGPT) 16 U/L (14-59) Alkaline Phosphatase 131 U/L (46-116) Total Protein 6.8 g/dL (6.4-8.2) Albumin 1.9 g/dL (3.4-5.0) Albumin/Globulin Ratio 0.4 (1.0-1.7) Assessment and Plan Assessmemt and Plan Nausea vomiting diarrhea secondary to pelvic mass also causing small bowel obstruction -3-day history worsening abdominal pain. Initially thought of secondary to Covid booster shot -Came to emergency room yesterday today found to have a large mass in her pelvis on CT scan -Gynecology and surgery consulted -Gynecology recommending pelvic ultrasound along with further lab work-up. If remains consistent with malignancy recommending transfer to another facility with [facility] [employer]/Onc coverage. Surgical team agrees. -Likely will be difficult to transfer as patient does not have insurance -N.p.o. for now -DVT prophylaxis Start working on transfer to facility with [employer] [facility] [employer] Onc capabilities Comment Review of Relevant I have reviewed the following items helena (where applicable) has been applied. Medications: Current Medications Medications (Trade) Dose Ordered Sig/Marilyn Route PRN Reason Start Time Stop Time Status Last Admin Dose Admin Heparin Sodium (Porcine) (Heparin Sodium) 5,000 unit Q8HRS SQ 02/28/21 14:00 03/01/21 05:51 Justifications for Admission Other Justification LYNDA DÍAZ MD Mar 01, 2021 08:54
[2021-03-01] MEDS: IV NORMAL SALINE 1000ML BAG 1,000 ML IV SCH ×2 (09:45→20:02)
--- NOTE | 2021-03-01 10:19 | PDOC ---
[employer] PROGRESS NOTE Date of Service: DATE: 03/01/21 TIME: 10:19 Subjective: Discussed recent findings with the pt. Objective: Vital Signs: Vital Signs Date Time Temp Pulse Resp B/P (MAP) Pulse Ox O2 Delivery O2 Flow Rate FiO2 02/28/21 07:00 98.5 75 19 123/70 (87) 94 Room Air 98.5 Vital Signs Date Time Temp Pulse Resp B/P (MAP) Pulse Ox O2 Delivery O2 Flow Rate FiO2 03/01/21 08:00 Room Air 03/01/21 07:00 99.4 105 16 111/68 (82) 95 99.4 Labs: Laboratory Tests Test 02/28/21 11:05 02/28/21 11:14 03/01/21 04:55 Tumor Marker Alpha Fetoprotein 0.8 ng/mL (0.0-8.3) CA 19-9 Antigen Pending CA 125 Antigen 48.9 U/mL (0.0-38.1) H Tumor Marker HCG <1 mIU/mL (.) Lactate Dehydrogenase 410 U/L (81-234) H White Blood Count 11.9 x10^3/uL (4.0-11.0) H Red Blood Count 3.83 x10^6/uL (3.50-5.40) Hemoglobin 10.0 g/dL (12.0-15.5) L Hematocrit 31.3 % (36.0-47.0) L Mean Corpuscular Volume 82 fL (79-100) Mean Corpuscular Hemoglobin 26 pg (25-35) Mean Corpuscular Hemoglobin Concent 32 g/dL (31-37) Red Cell Distribution Width 15.5 % (11.5-14.5) H Platelet Count 417 x10^3/uL (140-400) H Neutrophils (%) (Auto) 85 % (31-73) H Lymphocytes (%) (Auto) 9 % (24-48) L Monocytes (%) (Auto) 5 % (0-9) Eosinophils (%) (Auto) 0 % (0-3) Basophils (%) (Auto) 0 % (0-3) Neutrophils # (Auto) 10.2 x10^3/uL (1.8-7.7) H Lymphocytes # (Auto) 1.1 x10^3/uL (1.0-4.8) Monocytes # (Auto) 0.6 x10^3/uL (0.0-1.1) Eosinophils # (Auto) 0.0 x10^3/uL (0.0-0.7) Basophils # (Auto) 0.0 x10^3/uL (0.0-0.2) Sodium Level 142 mmol/L (136-145) Potassium Level 3.4 mmol/L (3.5-5.1) L Chloride Level 106 mmol/L (98-107) Carbon Dioxide Level 24 mmol/L (21-32) Anion Gap 12 (6-14) Blood Urea Nitrogen 13 mg/dL (7-20) Creatinine 0.6 mg/dL (0.6-1.0) Estimated GFR (Cockcroft-Gault) 111.9 BUN/Creatinine Ratio 22 (6-20) H Glucose Level 54 mg/dL (70-99) L Calcium Level 7.7 mg/dL (8.5-10.1) L Total Bilirubin 0.3 mg/dL (0.2-1.0) Aspartate Amino Transferase (AST) 8 U/L (15-37) L Alanine Aminotransferase (ALT) 16 U/L (14-59) Alkaline Phosphatase 131 U/L (46-116) H Total Protein 6.8 g/dL (6.4-8.2) Albumin 1.9 g/dL (3.4-5.0) L Albumin/Globulin Ratio 0.4 (1.0-1.7) L Laboratory Tests 03/01/21 04:55 Laboratory Tests 03/01/21 04:55 Laboratory Tests 03/01/21 04:55 Physical Exam: GENERAL: No apparent distress. Alert and oriented. HEENT: Head normocephalic, atraumatic. NECK: Supple LUNGS: Clear to auscultation. HEART: RRR, S1, S2 present, pulses intact ABDOMEN: Soft, positive bowel sounds. EXTREMITIES: No cyanosis or edema. NEUROLOGIC: Normal speech, normal tone PSYCHIATRIC: Normal affect, normal mood. SKIN: No ulceration. Assessment & Plan: A/P 40y who with pelvic mass and SBO 1.) Pelvic mass - Large (17.8 cm) left mixed cystic and solid lesion like o varian. Favor malignancy. CA 125 slightly elevated. Attempting transfer to facility with [employer] [facility]/Onc. [facility] at this time is full and cannot except transfer. 2.) SBO per Gen Surg 3.) Contraception none 4.) Will cont to follow ABBY OWENS MD Mar 01, 2021 10:19
[2021-03-01 11:00] VITALS: BP 110/65
--- NOTE | 2021-03-01 13:08 | NUR ---
[facility] following. Discussed with RN, pt needing java enterprise architect onc transfer. [facility] is at capacity, [facility] are not accepting transfers as they have pts waiting in the ER since 02/27 to be admitted to a bed. [facility] has java enterprise architect onc but are closed to transfers at this time. SW to contact [facility] again this afternoon to determine bed situation. Dr. Clay notified. [facility] will continue to follow.
[2021-03-01 14:14] LABS: CA 19-9 4 U/mL (0-35)
[2021-03-01 15:00] VITALS: BP 116/67
[2021-03-01 19:00] VITALS: BP 113/71
--- NOTE | 2021-03-01 20:31 | PDOC ---
SURGICAL PROGRESS NOTE DATE: 03/01/21 TIME: 20:29 Subjective Pt without new c/o, no flatus or stools Vital Signs Vital Signs Date Time Temp Pulse Resp B/P (MAP) Pulse Ox O2 Delivery O2 Flow Rate FiO2 03/01/21 19:00 99.4 98 18 113/71 (85) 98 Room Air 99.4 I&O Intake and Output 03/01/21 07:00 Output Total 700 ml Balance -700 ml Output Urine Total 400 ml Gastric Drainage Total 300 ml # Voids 2 General: Alert, Oriented X3, Cooperative, No acute distress Abdomen: Soft, No tenderness Labs Laboratory Tests Test 02/28/21 00:01 02/28/21 00:10 02/28/21 03:46 02/28/21 11:05 Serum Test, Qualitative Negative (NEG) White Blood Count 16.1 x10^3/uL (4.0-11.0) Red Blood Count 4.12 x10^6/uL (3.50-5.40) Hemoglobin 11.0 g/dL (12.0-15.5) Hematocrit 33.4 % (36.0-47.0) Mean Corpuscular Volume 81 fL (79-100) Mean Corpuscular Hemoglobin 27 pg (25-35) Mean Corpuscular Hemoglobin Concent 33 g/dL (31-37) Red Cell Distribution Width 15.5 % (11.5-14.5) Platelet Count 385 x10^3/uL (140-400) Neutrophils (%) (Auto) 91 % (31-73) Lymphocytes (%) (Auto) 6 % (24-48) Monocytes (%) (Auto) 3 % (0-9) Eosinophils (%) (Auto) 0 % (0-3) Basophils (%) (Auto) 0 % (0-3) Neutrophils # (Auto) 14.7 x10^3/uL (1.8-7.7) Lymphocytes # (Auto) 0.9 x10^3/uL (1.0-4.8) Monocytes # (Auto) 0.5 x10^3/uL (0.0-1.1) Eosinophils # (Auto) 0.0 x10^3/uL (0.0-0.7) Basophils # (Auto) 0.0 x10^3/uL (0.0-0.2) Sodium Level 137 mmol/L (136-145) Potassium Level 3.7 mmol/L (3.5-5.1) Chloride Level 100 mmol/L (98-107) Carbon Dioxide Level 28 mmol/L (21-32) Anion Gap 9 (6-14) Blood Urea Nitrogen 9 mg/dL (7-20) Creatinine 0.7 mg/dL (0.6-1.0) Estimated GFR (Cockcroft-Gault) 93.6 BUN/Creatinine Ratio 13 (6-20) Glucose Level 118 mg/dL (70-99) Calcium Level 8.1 mg/dL (8.5-10.1) Magnesium Level 2.2 mg/dL (1.8-2.4) Total Bilirubin 0.3 mg/dL (0.2-1.0) Aspartate Amino Transf (AST/SGOT) 15 U/L (15-37) Alanine Aminotransferase (ALT/SGPT) 22 U/L (14-59) Alkaline Phosphatase 134 U/L (46-116) Total Protein 7.5 g/dL (6.4-8.2) Albumin 2.3 g/dL (3.4-5.0) Albumin/Globulin Ratio 0.4 (1.0-1.7) Lipase 50 U/L (73-393) SARS-CoV-2 RNA (PITO) Negative (Negative) SARS-CoV-2 Antigen (Rapid) Negative (NEGATIVE) Tumor Marker Alpha Fetoprotein 0.8 ng/mL (0.0-8.3) CA 19-9 Antigen 4 U/mL (0-35) CA 125 Antigen 48.9 U/mL (0.0-38.1) Tumor Marker HCG <1 mIU/mL (.) Test 02/28/21 11:14 03/01/21 04:55 Lactate Dehydrogenase 410 U/L (81-234) White Blood Count 11.9 x10^3/uL (4.0-11.0) Red Blood Count 3.83 x10^6/uL (3.50-5.40) Hemoglobin 10.0 g/dL (12.0-15.5) Hematocrit 31.3 % (36.0-47.0) Mean Corpuscular Volume 82 fL (79-100) Mean Corpuscular Hemoglobin 26 pg (25-35) Mean Corpuscular Hemoglobin Concent 32 g/dL (31-37) Red Cell Distribution Width 15.5 % (11.5-14.5) Platelet Count 417 x10^3/uL (140-400) Neutrophils (%) (Auto) 85 % (31-73) Lymphocytes (%) (Auto) 9 % (24-48) Monocytes (%) (Auto) 5 % (0-9) Eosinophils (%) (Auto) 0 % (0-3) Basophils (%) (Auto) 0 % (0-3) Neutrophils # (Auto) 10.2 x10^3/uL (1.8-7.7) Lymphocytes # (Auto) 1.1 x10^3/uL (1.0-4.8) Monocytes # (Auto) 0.6 x10^3/uL (0.0-1.1) Eosinophils # (Auto) 0.0 x10^3/uL (0.0-0.7) Basophils # (Auto) 0.0 x10^3/uL (0.0-0.2) Sodium Level 142 mmol/L (136-145) Potassium Level 3.4 mmol/L (3.5-5.1) Chloride Level 106 mmol/L (98-107) Carbon Dioxide Level 24 mmol/L (21-32) Anion Gap 12 (6-14) Blood Urea Nitrogen 13 mg/dL (7-20) Creatinine 0.6 mg/dL (0.6-1.0) Estimated GFR (Cockcroft-Gault) 111.9 BUN/Creatinine Ratio 22 (6-20) Glucose Level 54 mg/dL (70-99) Calcium Level 7.7 mg/dL (8.5-10.1) Total Bilirubin 0.3 mg/dL (0.2-1.0) Aspartate Amino Transf (AST/SGOT) 8 U/L (15-37) Alanine Aminotransferase (ALT/SGPT) 16 U/L (14-59) Alkaline Phosphatase 131 U/L (46-116) Total Protein 6.8 g/dL (6.4-8.2) Albumin 1.9 g/dL (3.4-5.0) Albumin/Globulin Ratio 0.4 (1.0-1.7) Laboratory Tests Test 03/01/21 04:55 White Blood Count 11.9 x10^3/uL (4.0-11.0) Red Blood Count 3.83 x10^6/uL (3.50-5.40) Hemoglobin 10.0 g/dL (12.0-15.5) Hematocrit 31.3 % (36.0-47.0) Mean Corpuscular Volume 82 fL (79-100) Mean Corpuscular Hemoglobin 26 pg (25-35) Mean Corpuscular Hemoglobin Concent 32 g/dL (31-37) Red Cell Distribution Width 15.5 % (11.5-14.5) Platelet Count 417 x10^3/uL (140-400) Neutrophils (%) (Auto) 85 % (31-73) Lymphocytes (%) (Auto) 9 % (24-48) Monocytes (%) (Auto) 5 % (0-9) Eosinophils (%) (Auto) 0 % (0-3) Basophils (%) (Auto) 0 % (0-3) Neutrophils # (Auto) 10.2 x10^3/uL (1.8-7.7) Lymphocytes # (Auto) 1.1 x10^3/uL (1.0-4.8) Monocytes # (Auto) 0.6 x10^3/uL (0.0-1.1) Eosinophils # (Auto) 0.0 x10^3/uL (0.0-0.7) Basophils # (Auto) 0.0 x10^3/uL (0.0-0.2) Sodium Level 142 mmol/L (136-145) Potassium Level 3.4 mmol/L (3.5-5.1) Chloride Level 106 mmol/L (98-107) Carbon Dioxide Level 24 mmol/L (21-32) Anion Gap 12 (6-14) Blood Urea Nitrogen 13 mg/dL (7-20) Creatinine 0.6 mg/dL (0.6-1.0) Estimated GFR (Cockcroft-Gault) 111.9 BUN/Creatinine Ratio 22 (6-20) Glucose Level 54 mg/dL (70-99) Calcium Level 7.7 mg/dL (8.5-10.1) Total Bilirubin 0.3 mg/dL (0.2-1.0) Aspartate Amino Transf (AST/SGOT) 8 U/L (15-37) Alanine Aminotransferase (ALT/SGPT) 16 U/L (14-59) Alkaline Phosphatase 131 U/L (46-116) Total Protein 6.8 g/dL (6.4-8.2) Albumin 1.9 g/dL (3.4-5.0) Albumin/Globulin Ratio 0.4 (1.0-1.7) Assessment/Plan SBO, pelvic mass arrangements being made to evaluate by elementary instructional coach onc Justicifation of Admission Dx: Justifications for Admission: Justification of Admission Dx: N/A SHYANNE MERCADO MD Mar 01, 2021 20:31
[2021-03-01 23:00] VITALS: BP 101/58
[2021-03-02 03:02] VITALS: BP 101/61
[2021-03-02] MEDS: HEPARIN for SUB-Q USE 5,000 UNIT/ML VIAL. SQ SCH ×3 (05:53→21:42)
[2021-03-02 07:00] VITALS: BP 116/69
[2021-03-02] MEDS: SENNOSIDES/DOCUSATE 8.6/50MG TABLET. PO SCH ×2 (09:00→20:13)
--- NOTE | 2021-03-02 09:10 | PDOC ---
WOUND NURSE PROGRESS NOTE Date of Service: DATE: 03/02/21 TIME: 09:09 Subjective: Pt with questions about timing of transfer. She would also like to know how long the NG needs to be in place. Objective: Vital Signs: Vital Signs Date Time Temp Pulse Resp B/P (MAP) Pulse Ox O2 Delivery O2 Flow Rate FiO2 03/01/21 07:00 99.4 105 16 111/68 (82) 95 Room Air 99.4 Vital Signs Date Time Temp Pulse Resp B/P (MAP) Pulse Ox O2 Delivery O2 Flow Rate FiO2 03/02/21 03:02 99.2 103 18 101/61 (74) 96 Room Air 99.2 Physical Exam: GENERAL: No apparent distress. Alert and oriented. HEENT: Head normocephalic, atraumatic. NECK: Supple LUNGS: Clear to auscultation. HEART: RRR, S1, S2 present, pulses intact ABDOMEN: Soft, positive bowel sounds. EXTREMITIES: No cyanosis or edema. NEUROLOGIC: Normal speech, normal tone PSYCHIATRIC: Normal affect, normal mood. SKIN: No ulceration. Assessment & Plan: A/P 40y who with pelvic mass and SBO 1.) Pelvic mass - Large (17.8 cm) left mixed cystic and solid lesion like ovarian. Favor malignancy. CA 125 slightly elevated. Attempting transfer to facility with Skiver Operator/Onc. 2.) SBO per Gen Surg 3.) Contraception none 4.) Will cont to follow ABBY OWENS MD Mar 02, 2021 09:09
[2021-03-02] MEDS: IV NORMAL SALINE 1000ML BAG 1,000 ML IV SCH (09:26)
--- NOTE | 2021-03-02 10:15 | PDOC ---
[employer] PROGRESS NOTE Date of Service DOS: DATE: 03/02/21 TIME: 10:13 Chief Complaint Chief Complaint Assessmemt and Plan Nausea vomiting diarrhea secondary to pelvic mass also causing small bowel obstruction -3-day history worsening abdominal pain. Initially thought of secondary to Covid booster shot -Came to emergency room yesterday today found to have a large mass in her pelvis on CT scan -Gynecology and surgery consulted -Gynecology recommending pelvic ultrasound along with further lab work-up. If remains consistent with malignancy recommending transfer to another facility with Pickling Machine Operator/Onc coverage. Surgical team agrees. --> Findings consistent with malignancy -Likely will be difficult to transfer as patient does not have insurance -N.p.o. for now -DVT prophylaxis Continue working on transfer to facility with Pickling Machine Operator Onc capabilities History of Present Illness History of Present Illness Patient is a 40 year old female who presents with lower abdominal pain. Patient states that on Saturday she started having pain which progressed to diarrhea on Saturday along with vomiting. Patient reports that she vomited once yesterday and once today. Of note patient received her Covid shot on Saturday and initially thought symptoms were related to that. patient describes pain as a cr amping, intermittent pain. Denies other health history. Denies daily meds. Patient is fully vaccinated for COVID-19. 03/01 Patient evaluated and examined at bedside. She reports to me that her abdominal pain actually little bit improved. Says she had a bowel movement this morning. Pelvic ultrasound confirming mass consistent with malignancy. We will start working on transfer process. Patient's lack of insurance may make this difficult. Discussed this with patient at bedside she is agreeable to transfer. Will try to contact Dr. Louis to inform him of this. Plan of care discussed with bedside RN. 03/02 Patient evaluated examined at bedside. No beds available in town thus far for transfer. Patient very anxious about why She has not been transferred yet. Explained this to her and she seemed to understand we will continue to work on transfer. NG per surgical team. Continue current plan otherwise.. Vitals/I&O Vitals/I&O: Vital Signs Date Time Temp Pulse Resp B/P (MAP) Pulse Ox O2 Delivery O2 Flow Rate FiO2 03/02/21 07:00 99.2 98 16 116/69 (85) 96 Room Air 99.2 I & O 03/01/21 03/01/21 03/02/21 15:00 23:00 07:00 Output Total 900 ml Balance -900 ml Physical Exam General: Alert, Oriented X3, Cooperative, No acute distress Heart: Regular rate, Normal S1, Normal S2 Lungs: Clear Abdomen: Soft, No tenderness Extremities: No edema, Normal pulses Skin: No significant lesion Comment Review of Relevant I have reviewed the following items helena (where applicable) has been applied. Justifications for Admission Other Justification LYNDA DÍAZ MD Mar 02, 2021 10:15
[2021-03-02 11:00] VITALS: BP 116/76
[2021-03-02] MEDS ORDERED: IV DEXTROSE 5 %-0.45 % NACL 1,000 ML IV ONE (11:15)
--- NOTE | 2021-03-02 13:03 | PDOC ---
SURGICAL PROGRESS NOTE DATE: 03/02/21 TIME: 12:58 Subjective resting no abdominal pain + flatus Vital Signs Vital Signs Date Time Temp Pulse Resp B/P (MAP) Pulse Ox O2 Delivery O2 Flow Rate FiO2 03/02/21 11:00 98.4 92 16 116/76 (89) 97 Room Air 98.4 I&O Intake and Output 03/02/21 07:00 Output Total 900 ml Balance -900 ml Gastric Drainage Total 900 ml # Voids 2 # Bowel Movements 1 General: Alert, Oriented X3, Cooperative Abdomen: Soft, Other (ND, nttp) Labs Laboratory Tests Test 03/01/21 04:55 White Blood Count 11.9 x10^3/uL (4.0-11.0) Red Blood Count 3.83 x10^6/uL (3.50-5.40) Hemoglobin 10.0 g/dL (12.0-15.5) Hematocrit 31.3 % (36.0-47.0) Mean Corpuscular Volume 82 fL (79-100) Mean Corpuscular Hemoglobin 26 pg (25-35) Mean Corpuscular Hemoglobin Concent 32 g/dL (31-37) Red Cell Distribution Width 15.5 % (11.5-14.5) Platelet Count 417 x10^3/uL (140-400) Neutrophils (%) (Auto) 85 % (31-73) Lymphocytes (%) (Auto) 9 % (24-48) Monocytes (%) (Auto) 5 % (0-9) Eosinophils (%) (Auto) 0 % (0-3) Basophils (%) (Auto) 0 % (0-3) Neutrophils # (Auto) 10.2 x10^3/uL (1.8-7.7) Lymphocytes # (Auto) 1.1 x10^3/uL (1.0-4.8) Monocytes # (Auto) 0.6 x10^3/uL (0.0-1.1) Eosinophils # (Auto) 0.0 x10^3/uL (0.0-0.7) Basophils # (Auto) 0.0 x10^3/uL (0.0-0.2) Sodium Level 142 mmol/L (136-145) Potassium Level 3.4 mmol/L (3.5-5.1) Chloride Level 106 mmol/L (98-107) Carbon Dioxide Level 24 mmol/L (21-32) Anion Gap 12 (6-14) Blood Urea Nitrogen 13 mg/dL (7-20) Creatinine 0.6 mg/dL (0.6-1.0) Estimated GFR (Cockcroft-Gault) 111.9 BUN/Creatinine Ratio 22 (6-20) Glucose Level 54 mg/dL (70-99) Calcium Level 7.7 mg/dL (8.5-10.1) Total Bilirubin 0.3 mg/dL (0.2-1.0) Aspartate Amino Transf (AST/SGOT) 8 U/L (15-37) Alanine Aminotransferase (ALT/SGPT) 16 U/L (14-59) Alkaline Phosphatase 131 U/L (46-116) Total Protein 6.8 g/dL (6.4-8.2) Albumin 1.9 g/dL (3.4-5.0) Albumin/Globulin Ratio 0.4 (1.0-1.7) Assessment/Plan awaiting availability for tx will check abdominal films Justicifation of Admission Dx: Justifications for Admission: Justification of Admission Dx: N/A LAN BERGERON CERTIFIED ADAPTIVE PHYSICAL EDUCATOR Mar 02, 2021 13:03
--- NOTE | 2021-03-02 13:39 | NUR ---
[facility] following. Discussed with RN, [facility] phoned [facility] this morning - still at capacity. [facility] stated it was very low chance of acceptance, but advised [facility] to fax clinicals. Clinicals faxed to [facility]. [facility]oned [facility] again, still holding [address] Clay notified to call [facility] at [phone]. [facility] will continue to follow.
--- NOTE | 2021-03-02 13:51 | RAD ---
EXAM: Abdomen complete, 3 views. HISTORY: Small bowel obstruction. COMPARISON: 02/28/2021 FINDINGS: A frontal view of the chest and frontal upright and supine views of the abdomen are obtaine d. There is left suprahilar and bilateral lower lobe linear atelectasis or infiltrate. There is no pl eural effusion or pneumothorax. There is a nasogastric tube within the stomach. There are persistent air-filled loops of small bowel within the abdomen, primarily to the left of midline. These appear to be decreased in caliber compared to the prior CT. There is gas within the colon and rectum. There is no free air. IMPRESSION: 1. Slight interval decrease in distended air-filled dose of small bowel. This favors resolving obstru ction. 2. Nasogastric tube within the stomach. 3. Left suprahilar and bilateral lower lobe linear atelectasis or infiltrate. Electronically signed by: Kiara Winslow MD (03/02/2021 1:49 PM) [id number]
--- NOTE | 2021-03-02 14:34 | NUR ---
Deanne and ambulated down to room 516; tolerated well. up in recliner. ng connected to intermittent low suction. Acute abd completed
[2021-03-02 15:00] VITALS: BP 124/77
[2021-03-02 19:00] VITALS: BP 134/84
[2021-03-02 23:00] VITALS: BP 114/76
[2021-03-03 03:00] VITALS: BP 124/76
[2021-03-03] MEDS: IV NORMAL SALINE 1000ML BAG 1,000 ML IV SCH ×2 (05:45→22:28)
[2021-03-03] MEDS: HEPARIN for SUB-Q USE 5,000 UNIT/ML VIAL. SQ SCH ×3 (05:49→22:39)
[2021-03-03 07:00] VITALS: BP 134/91
[2021-03-03] MEDS: SENNOSIDES/DOCUSATE 8.6/50MG TABLET. PO SCH ×2 (07:14→21:00)
--- NOTE | 2021-03-03 10:39 | NUR ---
SW following. Discussed with RN, Dr. Clay spoke with [facility] - still no beds, try again after 1500. SW will continue to follow.
[2021-03-03] MEDS ORDERED: IOHEXOL 300 MG/ML 100ML VIAL. IJ ONE (11:45)
[2021-03-03] MEDS ORDERED: CONTRAST GIVEN. MC PRN (11:45)
--- NOTE | 2021-03-03 12:40 | PDOC ---
LAN BERGERON APRN 03/03/21 1240: SURGICAL PROGRESS NOTE DATE: 03/03/21 TIME: 12:39 Subjective down for SBFT will FU Vital Signs Vital Signs Date Time Temp Pulse Resp B/P (MAP) Pulse Ox O2 Delivery O2 Flow Rate FiO2 03/03/21 08:10 Room Air 03/03/21 07:00 98.3 100 18 134/91 (105) 96 98.3 I&O Intake and Output 03/03/21 07:00 Output Total 501 ml Balance -501 ml Output Urine Total 1 ml Gastric Drainage Total 500 ml # Voids 3 Justicifation of Admission Dx: Justifications for Admission: Justification of Admission Dx: N/A SHYANNE MERCADO MD 03/03/21 1551: SURGICAL PROGRESS NOTE Assessment/Plan Pt seen and examined. Agree with Javi Bergeron's note Pt feels better, main c/o is NGT abd soft, NTTP passing multiple stools SBFT with resolving ileus will d/c NGT and start clears ADAT, and plan d/c home. Recommend f/u as outpt with gynecologist onc. LAN BERGERON APRN Mar 03, 2021 12:40 SHYANNE MERCADO MD Mar 03, 2021 15:51
--- NOTE | 2021-03-03 13:52 | PDOC ---
FINANCIAL WRITER PROGRESS NOTE Date of Service: DATE: 03/03/21 TIME: 13:51 Subjective: No interval changes Objective: Vital Signs: Vital Signs Date Time Temp Pulse Resp B/P (MAP) Pulse Ox O2 Delivery O2 Flow Rate FiO2 03/02/21 07:00 99.2 98 16 116/69 (85) 96 Room Air 99.2 Vital Signs Date Time Temp Pulse Resp B/P (MAP) Pulse Ox O2 Delivery O2 Flow Rate FiO2 03/03/21 08:10 Room Air 03/03/21 07:00 98.3 100 18 134/91 (105) 96 98.3 Physical Exam: GENERAL: No apparent distress. Alert and oriented. HEENT: Head normocephalic, atraumatic. NECK: Supple LUNGS: Clear to auscultation. HEART: RRR, S1, S2 present, pulses intact ABDOMEN: Soft, positive bowel sounds. EXTREMITIES: No cyanosis or edema. NEUROLOGIC: Normal speech, normal tone PSYCHIATRIC: Normal affect, normal mood. SKIN: No ulceration. Assessment & Plan: A/P 40y who with pelvic mass and SBO 1.) Pelvic mass - Large (17.8 cm) left mixed cystic and solid lesion like ovarian. Favor malignancy. CA 125 slightly elevated. Attempting transfer to facility with Tape Control Skin Or Spar Mill Operator/Onc. Discussion held with outside facilities regarding outpt or inpt referral. Since has difficult finding beds, typically I refer to Dr. Karla Kamara ([facility], ) 2.) SBO improving on imaging, managed per Gen Surg 3.) Contraception none 4.) Will cont to follow ABBY OWENS MD Mar 03, 2021 13:51
--- NOTE | 2021-03-03 14:02 | PDOC ---
[employer] PROGRESS NOTE Date of Service DOS: DATE: 03/03/21 TIME: 14:01 Chief Complaint Chief Complaint Assessmemt and Plan Nausea vomiting diarrhea secondary to pelvic mass also causing small bowel obstruction -3-day history worsening abdominal pain. Initially thought of secondary to Covid booster shot -Came to emergency room yesterday today found to have a large mass in her pelvis on CT scan -Gynecology and surgery consulted -Gynecology recommending pelvic ultrasound along with further lab work-up. If remains consistent with malignancy recommending transfer to another facility with Project Coordinator Rn/Onc coverage. Surgical team agrees. --> Findings consistent with malignancy -Likely will be difficult to transfer as patient does not have insurance -N.p.o. for now -DVT prophylaxis Continue working on transfer to facility with Project Coordinator Rn Onc capabilities History of Present Illness History of Present Illness Patient is a 40 year old female who presents with lower abdominal pain. Patient states that on Saturday she started having pain which progressed to diarrhea on Saturday along with vomiting. Patient reports that she vomited once yesterday and once today. Of note patient received her Covid shot on Saturday and initially thought symptoms were related to that. patient describes pain as a cr amping, intermittent pain. Denies other health history. Denies daily meds. Patient is fully vaccinated for COVID-19. 03/01 Patient evaluated and examined at bedside. She reports to me that her abdominal pain actually little bit improved. Says she had a bowel movement this morning. Pelvic ultrasound confirming mass consistent with malignancy. We will start working on transfer process. Patient's lack of insurance may make this difficult. Discussed this with patient at bedside she is agreeable to transfer. Will try to contact Dr. Louis to inform him of this. Plan of care discussed with bedside RN. 03/02 Patient evaluated examined at bedside. No beds available in town thus far for transfer. Patient very anxious about why She has not been transferred yet. Explained this to her and she seemed to understand we will continue to work on transfer. NG per surgical team. Continue current plan otherwise. 03/03 Patient evaluated and examined at bedside. Still working on transfer. Discussed with [facility] this morning they may or may not have beds later this afternoon. We will also continue looking into other facilities. Discussed case with Dr. Louis. Continue current plan. Transfer when accepted. Vitals/I&O Vitals/I&O: Vital Signs Date Time Temp Pulse Resp B/P (MAP) Pulse Ox O2 Delivery O2 Flow Rate FiO2 03/03/21 08:10 Room Air 03/03/21 07:00 98.3 100 18 134/91 (105) 96 98.3 I & O 03/02/21 03/02/21 03/03/21 15:00 23:00 07:00 Output Total 500 ml 1 ml Balance -500 ml -1 ml Physical Exam General: Alert, Oriented X3, Cooperative Heart: Regular rate, Normal S1, Normal S2 Lungs: Clear Abdomen: Soft, Other (ND, nttp) Extremities: No edema, Normal pulses Skin: No significant lesion Comment Review of Relevant I have reviewed the following items helena (where applicable) has been applied. Medications: Current Medications Medications (Trade) Dose Ordered Sig/Marilyn Route PRN Reason Start Time Stop Time Status Last Admin Dose Admin Iohexol (Omnipaque 300 Mg/ml) 400 ml 1X ONCE IJ 03/03/21 11:45 03/03/21 11:46 DC 03/03/21 11:45 Justifications for Admission Other Justification LYNDA DÍAZ MD Mar 03, 2021 14:02
--- NOTE | 2021-03-03 14:30 | RAD ---
EXAM: Small bowel follow through exam. HISTORY: Small bowel obstruction. TECHNIQUE: A satellite dish installer image of the abdomen was obtained. Serial overhead images were then obtained follo wing the administration of water-soluble contrast through an indwelling nasogastric tube. COMPARISON: CT dated 02/27/2021. FINDINGS: The satellite dish installer image of the abdomen demonstrates a distended loop of small bowel within the left upper quadrant. There is a nasogastric tube within the stomach. There is a small amount of gas and s tool within the colon and rectum. The images obtained following the administration of water-soluble c ontrast demonstrate mildly distended loops of small bowel within the left upper abdomen and right mid abdomen. No convincing transition point is seen. There is contrast within the colon by 40 minutes. No intrinsic mucosal lesion is seen. There is a possibility of bowel loops within the left lower quadra nt. IMPRESSION: 1. Mildly distended loops of small bowel within the upper and mid abdomen. These are decreased in venecia iber compared to the comparison CT. This favors resolving partial obstruction. 2. Normal small bowel transit time. 3. Nasogastric tube within the stomach. 4. Paucity of bowel loops within the left lower quadrant likely due to a recently demonstrated pelvic mass. Electronically signed by: Kiara Winslow MD (03/03/2021 2:27 PM) [id number]
[2021-03-03 15:00] VITALS: BP 113/74
[2021-03-03 19:00] VITALS: BP 127/84
[2021-03-03 23:00] VITALS: BP 114/73
[2021-03-04 03:32] VITALS: BP 112/74
[2021-03-04] MEDS: IV NORMAL SALINE 1000ML BAG 1,000 ML IV SCH ×2 (04:25→17:45)
[2021-03-04] MEDS: HEPARIN for SUB-Q USE 5,000 UNIT/ML VIAL. SQ SCH ×3 (06:28→20:32)
[2021-03-04 07:00] VITALS: BP 127/79
--- NOTE | 2021-03-04 08:21 | PDOC ---
LAN BERGERON APRN 03/04/21 0820: SURGICAL PROGRESS NOTE DATE: 03/04/21 TIME: 08:19 Subjective multiple trips to [place], no nausea no abdominal pain tolerating clears Vital Signs Vital Signs Date Time Temp Pulse Resp B/P (MAP) Pulse Ox O2 Delivery O2 Flow Rate FiO2 03/04/21 03:32 99.1 86 18 112/74 (87) 98 Room Air 99.1 I&O Intake and Output 03/04/21 07:00 Intake Total 650 ml Balance 650 ml Intake Oral 650 ml # Voids 4 General: Alert Abdomen: Soft, No tenderness Assessment/Plan advance diet can work toward dc with petroleum inspector supervisor/onc FU Justicifation of Admission Dx: Justifications for Admission: Justification of Admission Dx: N/A SHYANNE MERCADO MD 03/04/21 1540: SURGICAL PROGRESS NOTE Assessment/Plan Pt seen and examined. Agree with Fanny's note Pt feels better, ji clears, passing multiple stools, NGT out abd soft, Nd, NTTP OK to work towards d/c and f/u petroleum inspector supervisor onc LAN BERGERON APRN Mar 04, 2021 08:20 SHYANNE MERCADO MD Mar 04, 2021 15:40
[2021-03-04] MEDS: SENNOSIDES/DOCUSATE 8.6/50MG TABLET. PO SCH ×2 (09:00→20:32)
[2021-03-04 11:00] VITALS: BP 124/84
--- NOTE | 2021-03-04 11:05 | PDOC ---
[employer] PROGRESS NOTE Date of Service DOS: DATE: 03/04/21 TIME: 11:04 Chief Complaint Chief Complaint Assessmemt and Plan Nausea vomiting diarrhea secondary to pelvic mass also causing small bowel obstruction -3-day history worsening abdominal pain. Initially thought of secondary to Covid booster shot -Came to emergency room yesterday today found to have a large mass in her pelvis on CT scan -Gynecology and surgery consulted -Gynecology recommending pelvic ultrasound along with further lab work-up. If remains consistent with malignancy recommending transfer to another facility with Supervisor In Charge/Onc coverage. Surgical team agrees. --> Findings consistent with malignancy -Likely will be difficult to transfer as patient does not have insurance -N.p.o. for now -DVT prophylaxis Continue working on transfer to facility with Supervisor In Charge Onc capabilities History of Present Illness History of Present Illness Patient is a 40 year old female who presents with lower abdominal pain. Patient states that on Saturday she started having pain which progressed to diarrhea on Saturday along with vomiting. Patient reports that she vomited once yesterday and once today. Of note patient received her Covid shot on Saturday and initially thought symptoms were related to that. patient describes pain as a cr amping, intermittent pain. Denies other health history. Denies daily meds. Patient is fully vaccinated for COVID-19. 03/01 Patient evaluated and examined at bedside. She reports to me that her abdominal pain actually little bit improved. Says she had a bowel movement this morning. Pelvic ultrasound confirming mass consistent with malignancy. We will start working on transfer process. Patient's lack of insurance may make this difficult. Discussed this with patient at bedside she is agreeable to transfer. Will try to contact Dr. Louis to inform him of this. Plan of care discussed with bedside RN. 03/02 Patient evaluated examined at bedside. No beds available in town thus far for transfer. Patient very anxious about why She has not been transferred yet. Explained this to her and she seemed to understand we will continue to work on transfer. NG per surgical team. Continue current plan otherwise. 03/03 Patient evaluated and examined at bedside. Still working on transfer. Discussed with [facility] this morning they may or may not have beds later this afternoon. We will also continue looking into other facilities. Discussed case with Dr. Louis. Continue current plan. Transfer when accepted. 03/04 Patient evaluated examined at bedside. Still hoping for transfer. However at this point may need to consider discharge with outpatient follow-up as it seems obstruction has improved. Discussed patient how she would like to proceed in regards to that. Will give her information on Dr. Louis's recommended provider. Vitals/I&O Vitals/I&O: Vital Signs Date Time Temp Pulse Resp B/P (MAP) Pulse Ox O2 Delivery O2 Flow Rate FiO2 03/04/21 07:00 99.0 91 17 127/79 (95) 97 Room Air 99.0 I & O 03/03/21 03/03/21 03/04/21 15:00 23:00 07:00 Intake Total 250 ml 400 ml Balance 250 ml 400 ml Physical Exam General: Alert Heart: Regular rate, Normal S1, Normal S2 Lungs: Clear Abdomen: Soft, No tenderness Extremities: No edema, Normal pulses Skin: No significant lesion Comment Review of Relevant I have reviewed the following items helena (where applicable) has been applied. Medications: Current Medications Medications (Trade) Dose Ordered Sig/Marilyn Route PRN Reason Start Time Stop Time Status Last Admin Dose Admin Iohexol (Omnipaque 300 Mg/ml) 400 ml 1X ONCE IJ 03/03/21 11:45 03/03/21 11:46 DC 03/03/21 11:45 Justifications for Admission Other Justification LYNDA DÍAZ MD Mar 04, 2021 11:05
--- NOTE | 2021-03-04 11:39 | PDOC ---
END FINDER FORMING DEPARTMENT PROGRESS NOTE Date of Service: DATE: 03/04/21 TIME: 11:38 Subjective: Discussed plan with pt. Objective: Vital Signs: Vital Signs Date Time Temp Pulse Resp B/P (MAP) Pulse Ox O2 Delivery O2 Flow Rate FiO2 03/03/21 07:00 98.3 100 18 134/91 (105) 96 98.3 03/03/21 08:10 Room Air Vital Signs Date Time Temp Pulse Resp B/P (MAP) Pulse Ox O2 Delivery O2 Flow Rate FiO2 03/04/21 07:00 99.0 91 17 127/79 (95) 97 Room Air 99.0 Physical Exam: GENERAL: No apparent distress. Alert and oriented. HEENT: Head normocephalic, atraumatic. NECK: Supple LUNGS: Clear to auscultation. HEART: RRR, S1, S2 present, pulses intact ABDOMEN: Soft, positive bowel sounds. EXTREMITIES: No cyanosis or edema. NEUROLOGIC: Normal speech, normal tone PSYCHIATRIC: Normal affect, normal mood. SKIN: No ulceration. Assessment & Plan: A/P 40y who with pelvic mass and SBO 1.) Pelvic mass - Large (17.8 cm) left mixed cystic and solid lesion like ovarian. Favor malignancy. CA 125 slightly elevated. Discussed outpt referral vs inpt transfer. If resolution of SBO, may be more effective. Dr. Karla Jc [facility], would be my first choice. 2.) SBO improving on imaging, NGT out, managed per Gen Surg 3.) Contraception none 4.) Will cont to follow ABBY OWENS MD Mar 04, 2021 11:39
[2021-03-04 15:00] VITALS: BP 126/85
[2021-03-04 19:00] VITALS: BP 117/76
[2021-03-04 23:05] VITALS: BP 113/72
[2021-03-05 03:27] VITALS: BP 102/64
[2021-03-05] MEDS: HEPARIN for SUB-Q USE 5,000 UNIT/ML VIAL. SQ SCH (06:00)
[2021-03-05] MEDS: IV NORMAL SALINE 1000ML BAG 1,000 ML IV SCH (06:02)
[2021-03-05 07:00] VITALS: BP 118/73
--- NOTE | 2021-03-05 07:26 | PDOC ---
ENVIRONMENTAL ENGINEERING TECHNICIAN PROGRESS NOTE Date of Service: DATE: 03/05/21 TIME: 07:26 Subjective: Pt ji PO Objective: Vital Signs: Vital Signs Date Time Temp Pulse Resp B/P (MAP) Pulse Ox O2 Delivery O2 Flow Rate FiO2 03/04/21 07:00 99.0 91 17 127/79 (95) 97 Room Air 99.0 Vital Signs Date Time Temp Pulse Resp B/P (MAP) Pulse Ox O2 Delivery O2 Flow Rate FiO2 03/05/21 03:27 99.0 92 18 102/64 (77) 98 Room Air 99.0 Physical Exam: GENERAL: No apparent distress. Alert and oriented. HEENT: Head normocephalic, atraumatic. NECK: Supple LUNGS: Clear to auscultation. HEART: RRR, S1, S2 present, pulses intact ABDOMEN: Soft, positive bowel sounds. EXTREMITIES: No cyanosis or edema. NEUROLOGIC: Normal speech, normal tone PSYCHIATRIC: Normal affect, normal mood. SKIN: No ulceration. Assessment & Plan: A/P 40y who with pelvic mass and SBO 1.) Pelvic mass - Large (17.8 cm) left mixed cystic and solid lesion like ovarian. Favor malignancy. CA 125 slightly elevated. Discussed outpt referral vs inpt transfer. If d/c will attempt to arrange for apt with Dr. Karla Jc [place], [phone]. 2.) SBO improving on imaging, NGT out, ji PO, managed per Gen Surg 3.) Contraception none 4.) Will cont to follow ABBY OWENS MD Mar 05, 2021 07:26
[2021-03-05] MEDS: SENNOSIDES/DOCUSATE 8.6/50MG TABLET. PO SCH (08:29)
--- NOTE | 2021-03-05 10:36 | PDOC ---
SURGICAL PROGRESS NOTE DATE: 03/05/21 TIME: 10:33 Subjective Pt without c/o, ji PO Vital Signs Vital Signs Date Time Temp Pulse Resp B/P (MAP) Pulse Ox O2 Delivery O2 Flow Rate FiO2 03/05/21 08:00 Room Air 03/05/21 07:00 99.0 92 17 118/73 (88) 96 99.0 General: Alert, Oriented X3, Cooperative, No acute distress Abdomen: Soft, No tenderness Assessment/Plan pelvic mass OK to d/c f/u with clarifying plant operator onc happy to assist with surgery at that time Justicifation of Admission Dx: Justifications for Admission: Justification of Admission Dx: N/A SHYANNE MERCADO MD Mar 05, 2021 10:36
[2021-03-05 11:00] VITALS: BP 104/65
--- NOTE | 2021-03-05 11:50 | PDOC3 ---
[facility]-Discharge Summary Date of Admission: Date of Admission: Feb 28, 2021 Date of Discharge: Date of Discharge: Mar 05, 2021 Admission Diagnosis: Problems: (1) SBO (small bowel obstruction) (2) Pelvic mass Discharge Diagnosis: Discharge Diagnosis: Pelvic Mass Consults: Consults: Power System Engineer, Surgery Hospital Course: Hospital Course: Assessmemt and Plan Nausea vomiting diarrhea secondary to pelvic mass also causing small bowel obstruction -3-day history worsening abdominal pain. Initially thought of secondary to Covid booster shot -Came to emergency room yesterday today found to have a large mass in her pelvis on CT scan -Gynecology and surgery consulted -Gynecology recommending pelvic ultrasound along with further lab work-up. If remains consistent with malignancy recommending transfer to another facility with Power System Engineer/Onc coverage. Surgical team agrees. --> Findings consistent with malignancy -Likely will be difficult to transfer as patient does not have insurance -DVT prophylaxis Continue working on transfer to facility with Power System Engineer Onc capabilities History of Present Illness History of Present Illness Patient is a 40 year old female who presents with lower abdominal pain. Patient states that on Saturday she started having pain which progressed to diarrhea on Saturday along with vomiting. Patient reports that she vomited once yesterday and once today. Of note patient received her Covid shot on Saturday and initially thought symptoms were related to that. patient describes pain as a cramping, intermittent pain. Denies other health history. Denies daily meds. Patient is fully vaccinated for COVID-19. 03/01 Patient evaluated and examined at bedside. She reports to me that her abdominal pain actually little bit improved. Says she had a bowel movement this morning. Pelvic ultrasound confirming mass consistent with malignancy. We will start working on transfer process. Patient's lack of insurance may make this difficult. Discussed this with patient at bedside she is agreeable to transfer. Will try to contact Dr. Louis to inform him of this. Plan of care discussed with bedside RN. 03/02 Patient evaluated examined at bedside. No beds available in town thus far for transfer. Patient very anxious about why She has not been transferred yet. Explained this to her and she seemed to understand we will continue to work on transfer. NG per surgical team. Continue current plan otherwise. 03/03 Patient evaluated and examined at bedside. Still working on transfer. Discussed with [facility] this morning they may or may not have beds later this afternoon. We will also continue looking into other facilities. Discussed case with Dr. Louis. Continue current plan. Transfer when accepted. 03/04 Patient evaluated examined at bedside. Still hoping for transfer. However at this point may need to consider discharge with outpatient follow-up as it seems obstruction has improved. Discussed patient how she would like to proceed in regards to that. Will give her information on Dr. Louis's recommended provider. 03/05 Patient evaluated examined at bedside. She is tolerating p.o. without difficulty at this point she would like to discharge home with outpatient follo w-up. Instructed her red flag signs and when to return to the emergency room if needed. Provided her with information of Dr. Karla Jc [place], . Instructed her to call her tomorrow morning to set up appointment. The doctor's office can call the hospital here for any questions. I spent greater than 30 minutes on the discharge of this patient 17 minutes advanced care planning. Disposition: Disposition/Orders: D/C to Home Activity: Activity: Resume previous activity Diet: Diet: Regular Medications: Home Meds Active Scripts Sennosides/Docusate Sodium (Senna-Docusate Sodium Tablet) 1 Each Tablet, 1 TAB PO DAILY for constipation for 20 Days, #20 TAB 0 Refills Prov:LYNDA DÍAZ MD 03/05/21 Oxycodone/Apap 5-325 (PERCOCET 5-325 MG TABLET ) 1 Each Tablet, 1 TAB PO QIDPRN PRN for PAIN MDD 4 Tablet(s) for 5 Days, #20 TAB 0 Refills Prov:LYNDA DÍAZ MD 03/05/21 Reported Medications Acetaminophen (TYLENOL) 325 Mg Tablet, 650 MG PO PRN Q4HRS PRN for MILD PAIN / TEMP > 100.3'F, TAB 02/28/21 Scheduled Sennosides/Docusate Sodium (Senna-Docusate Sodium Tablet), 1 TAB PO DAILY Scheduled PRN Acetaminophen (Tylenol), 650 MG PO PRN Q4HRS PRN for MILD PAIN / TEMP > 100.3'F, (Reported) Oxycodone/Apap 5-325 (Percocet 5-325 Mg Tablet ), 1 TAB PO QIDPRN PRN for PAIN Justicifation of Admission Dx: Justifications for Admission: Justification of Admission Dx: N/A LYNDA DÍAZ MD Mar 05, 2021 11:50
[2021-03-05] MEDS ORDERED: OXYC1TAB15 PO (11:56)
[2021-03-05] MEDS ORDERED: SENN1TAB99 PO (11:56)
--- NOTE | 2021-03-05 13:45 | NUR ---
All of pts current imaging uploaded to the cloud so [facility] can have access to the films.
--- NOTE | 2021-03-05 13:45 | NUR ---
Pt discharged to home with all belongings. Pt and spouse verbalized understanding of discharge instructions, medications, and follow up. Pt to follow up with Dr. Karla Kamara at [facility], number and address provided to the pt as well as Dr. Cleary information.
== END 2021-03-05 13:40 | disposition home or self-care (01) | DRG 392 ==
LOC: ER 21:03 → 5 NORTH 02-28 02:00
PROVIDERS: ADMIT Internal Medicine; ATTEND Internal Medicine
DX: R19.00 Intra-abdominal and pelvic swelling, mass and lump, unspecified site (principal); K56.609 Unspecified intestinal obstruction, unspecified as to partial versus complete obstruction; K56.7 Ileus, unspecified; Z20.822 Contact with and (suspected) exposure to COVID-19
CPT/HCPCS: 36415; 71045; 74018; 74022; 74176; 74250; 76856; 80053; 82105; 83615; 83690; 83735; 84702; 84703; 85025; 86301; 86304; 87426; 96361; 96374; 96375; J1644; J2270; J2405; J3010; J7030; J7042; Q9967; U0003; U0005; 84704; 99285-25; G0378